=== PATIENT | male | born 1970 | race Caucasian/White ===

== ENCOUNTER 2016-06-25 20:31 | Emergency (ER) | payer BC ==
[~2016-06-25] VITALS: Ht 170.2 cm; Wt 124.7 kg
[~2016-06-25 20:31] MED LIST: ALLOPURINOL300 M1 PO; BUMETANIDE2 MG PO; K-DUR 2020 MEQ PO; LISINOPRIL10 MG PO; METOPROLOL SUC100 M2 PO; SPIRONOLACTONE50 MG PO
[2016-06-25 21:15] LABS: HEMOGLOBIN 17.6 g/dL (14.1-18.0); LYMPH % 19.9 % (10-50)
[2016-06-25 21:24] LABS: BUN 24 mg/dL (7-18); GFR (ESTIMATED) 46 ML/MIN (>60)
--- NOTE | 2016-06-25 21:53 | Emergency Room Report ---
History of Present Illness Time Seen by [id number] Presenting Problem in Triage Pt arrived:Walked Presenting Problem:PT C/O SOA AND BEING NAUSEATED SINCE YESTERDAY. 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 N Clinical Suspician of Infection? N Mental Status: 1 - Regular (Normal Baseline) Sepsis Risk:Low Sepsis Risk Have you (or family members/close friends) recently traveled outside the [place]? N If Yes, where/when: Have you had exposure to infectious disease within the past month? N TB? Other? Specify: Source patient, RN notes reviewed, family, old records Exam Limitations no limitations Comment pt with hx of dizzyness and nausea with no chest pain - has pacemaker and he has had these episodes in past with no syncope Cardiac Chest Pain Chest pain indicative of cardiac No Timing/Duration this evening Severity moderate ALLERGIES Coded Allergies: No Known Allergies (03/26/16) Home Medications Reported Medications Lisinopril 15 MG PO DAILY #90 Spironolactone (Spironolactone) 50 MG PO DAILY #30 Metoprolol Succinate (Metoprolol Succinate XL) 150 MG PO DAILY #45 Potassium Chloride (K-Dur) 40 MEQ PO DAILY #60 Bumetanide 4 MG PO DAILY #60 Allopurinol 300 MG PO DAILY #30 History Medical History General CAD? No Angina: No HI: No Hypertension? No Hyperlipidemia? No CHF? Yes DVT? No PE? No COPD? No Asthma? No Anemia? No GERD? No Gastric ulcers? No GI Bleed? No Hernia? No Thyroid Problems? No Hypothyroidism? No CVA? No Seizures? No Diabetes? No Renal Insuffiency? No End Stage Renal Disease? No UTI? No Stones? No BPH? No GB Disease: No Nephritic Syndrome? No Asplenia? No Hepatitis? No Sickle Cell Disease? No Arthritis? No Migraines? No Cataracts? No Glaucoma? No MRSA? No HIV? No TB? No Anxiety? No Depression? No Cancer? No More? No Immunization Hx DT/Tetanus 03/26/16 Surgical Hx Previous Surgery?Y PACEMAKER Social History Smoking Hx Smoker: Never Smoker Tobacco: No Alcohol Alcohol: No Drugs none Review of Systems All Other Systems Reviewed and Negative Constitutional denies fever Eyes denies drainage ENT denies: ear pain, epistaxis, throat pain. Respiratory denies cough, denies shortness of breath, denies wheezing Cardiovascular denies chest pain, denies palpitations, denies syncope Gastrointestinal see HPI, nausea, denies vomiting Genitourinary denies: dysuria, frequency, hesitancy. Musculoskeletal denies back pain, denies joint pain, denies joint swelling, denies neck pain Skin denies rash Psychiatric/Neurological denies headache, denies seizure Physical Exam Vital Signs Vital Signs Date Time Temp Pulse Resp B/P Pulse O2 O2 Flow FiO2 Ox Delivery Rate 06/25 2235 97.9 77 20 97 06/25 2232 78 112/75 06/25 2232 79 114/42 06/25 2230 77 9006/25 84 16 85/56 96 06/25 2038 98.2 83 16 96/68 98 - WBC >12,000 or <4,000 or 10% bands? 2 or more SIRS Criteria Met? B/P: MAP:77 Creatinine >2.0? UA output<0.5ml/kg/hr for 2 hrs? Platelet count >100,000? Lactate >2.0mmol/1? INR >1.2 or PTT > than 60 sec? Evidence of Organ Dysfunction? Provider documented clinical suspician of infection? N Sepsis Criteria Count: 0 Sepsis Risk: Low Sepsis Risk General Appearance no apparent distress Eye Exam - bilateral eye PERRL, bilateral eye EOMI Ear, Nose, Throat normal ENT inspection Neck supple, no bruits Respiratory Status No: respiratory distress. Lung Sounds bilateral: lungs clear. 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 No Results/Orders Laboratory Tests 06/25/162049: Sodium 133 L, Potassium 3.4 L, Chloride 95 L, Carbon Dioxide 28, BUN 24 H, Creatinine 1.6 H, Estimated Creat Clear 100, Estimated GFR (MDRD) 46, Glucose 116 H, Calcium 8.9, Total Bilirubin 2.0 H, AST 34, ALT 25, Alkaline Phosphatase 100, Creatine Kinase 41, CK-MB (CK-2) Rel Index 1.2, CK and CKMB Interp < 0.5, Troponin I < 0.02, Total Protein 7.8, Albumin 3.4, Globulin 4.4 H , Albumin/Globulin Ratio 0.8 L, WBC 10.2, RBC 5.74, Hgb 17.6, Hct 52.2 H, MCV 90.8, RDW 16.0, Plt Count 36 *L, MPV 15.4 H, Gran % 62.7, Gran # 6.4, Lymphocytes % 19.9, Monocytes % 14.5 H, Eosinophils % 1.1, Basophils % 1.9, Lymphocytes # 2.0, Monocytes # 1.5 H, Eosinophils # 0.1, Basophils # 0.2, PUBS MCHC 34.0, MCH 30.9 Current Medication Orders Sig/Marco Start time Last Medication Dose Route Stop Time Status Admin Sodium Chloride 1,000 ML .Q4H 06/25 2214 AC 06/25 IV 06/26 213 2204 Sodium Chloride 10 ML PRN PRN 06/25 2214 AC IV 06/26 2200 Sodium Chloride 1,000 ML .STK-MED ONE 06/25 2201 DC IV Sodium Chloride 10 ML PRN PRN 06/25 2044 AC IV 06/26 2042 Orders Procedure Date/time Status ORTHOSTATIC B/P 06/25 2201 Active ELECTROCARDIOGRAM REQUEST 06/25 2042 Active IV SALINE LOCK 06/25 2042 Active CBC WITH AUTO DIFF 06/25 2042 Complete CARDIAC ENZYMES 06/25 2042 Complete CHEM 12 PROFILE 06/25 2042 Complete 12 LEAD EKG-KULDIP (INITIAL) 06/25 UNK Active CM/EKG CM/administration internship Rhythm Paced Rhythm Departure Departure Time of Disposition 2230 Disposition DC Home or Self Care(routine) Clinical Impression Primary Impression: Vertigo Secondary Impressions: Renal insufficiency, Thrombocytopenia Condition STABLE Referrals Tristan GONZALEZ,A.C. (Family) Patient Instructions DI for Dizziness-Nonvertigo Additional Instructions call your dr in am and discuss meds and lab results Discharge Counseling Counseled pt/family regarding diagnosis, test results, medications/RX, follow up needs ED [place] [id number]
[2016-06-25 23:18] VITALS: BP 82/48
== END 2016-06-25 23:19 | disposition home or self-care (01) ==
LOC: ER 20:31
PROVIDERS: Emergency Medicine
DX: R42 Dizziness and giddiness (principal); D69.6 Thrombocytopenia, unspecified; Z95.0 Presence of cardiac pacemaker